=== PATIENT | female | born 1970 | race Caucasian/White ===

== ENCOUNTER 2018-01-11 07:14 | Emergency (ER) | payer MEDICAID ==
[~2018-01-11] VITALS: Ht 154.9 cm; Wt 54.1 kg
[~2018-01-11 07:14] MED LIST: ALBU6.7H INH; DOCU-28 PO
[2018-01-11] MEDS ORDERED: BENZ-16 PO (08:58)
[2018-01-11] MEDS ORDERED: ALBU8HFA PO (08:58)
[2018-01-11] MEDS ORDERED: AZIT-55 PO (09:04)
[2018-01-11] MEDS ORDERED: PRED20TA PO (09:04)
[2018-01-11 09:25] VITALS: BP 156/98
== END 2018-01-11 09:25 | disposition home or self-care (01) ==
LOC: ER 07:14
DX: J40 Bronchitis, not specified as acute or chronic (principal); E78.00 Pure hypercholesterolemia, unspecified; I10 Essential (primary) hypertension; F17.200 Nicotine dependence, unspecified, uncomplicated; Z90.710 Acquired absence of both cervix and uterus; Z85.9 Personal history of malignant neoplasm, unspecified; Z88.5 Allergy status to narcotic agent; Z79.899 Other long term (current) drug therapy
CPT/HCPCS: 71046; 93005; 99284

== ENCOUNTER 2019-11-19 15:24 | Emergency (ER) | payer MEDICAID ==
[~2019-11-19] VITALS: Ht 157.5 cm; Wt 72.7 kg
[~2019-11-19 15:24] MED LIST changes: -ALBU6.7H INH; +ALBU6.7H9 INH
--- NOTE | 2019-11-19 15:54 | NUR ---
Pt transported from ED triage where lab was drawing blood work straight to CT scan via w/c.
[2019-11-19 16:03] LABS: BASOPHILS # (AUTO) 0.1 X10'3 (0-0.2); EOSINOPHILS # (AUTO) 0.1 X10'3 (0-0.9); EOSINOPHILS % (AUTO) 2.4 % (0-6); HEMATOCRIT 42.5 % (35.0-45.0); HEMOGLOBIN 14.7 g/dl (12.0-16.0); LYMPHOCYTES # (AUTO) 1.5 X10'3 (1.1-4.8); LYMPHOCYTES % (AUTO) 25.2 % (21-51); MEAN CORPUSCULAR HEMOGLOBIN 31.1 PG (27.0-31.0); MEAN CORPUSCULAR HGB CONC 34.6 g/dL (33.0-36.5); MEAN CORPUSCULAR VOLUME 89.9 FL (78-98); MEAN PLATELET VOLUME 7.1 FL (7.4-10.4); MONOCYTES # (AUTO) 0.4 X10'3 (0-0.9); MONOCYTES % (AUTO) 7.1 % (2-12); NEUTROPHILS # (AUTO) 3.8 X10'3 (1.8-7.7); NEUTROPHILS % (AUTO) 64.3 % (42-75); PLATELET COUNT 363 X10'3 (140-440); RED BLOOD COUNT 4.73 X10'6 (4.20-5.60); RED CELL DISTRIBUTION WIDTH 13.7 % (11.5-14.5); WHITE BLOOD COUNT 5.9 X10'3 (4.5-11.0)
[2019-11-19 16:15] LABS: PARTIAL THROMBOPLASTIN TIME 26 SECONDS (22-32)
[2019-11-19 16:16] LABS: ALANINE AMINOTRANSFERASE 35 U/L (12-78); ALBUMIN 3.3 G/DL (3.4-5.0); ALBUMIN/GLOBULIN RATIO 0.9 (1.1-1.5); ALKALINE PHOSPHATASE 138 IU/L (46-116); ANION GAP 11 (8-16); ASPARTATE AMINO TRANSFERASE 18 U/L (10-37); BILIRUBIN,TOTAL 0.3 MG/DL (0.1-1.0); BLOOD UREA NITROGEN 13 MG/DL (7-18); BUN/CREATININE RATIO 17.6 (6.6-38.0); CALCIUM 8.7 MG/DL (8.5-10.1); CHLORIDE 107 MMOL/L (99-107); CREATININE 0.74 MG/DL (0.40-0.90); GLUCOSE 125 MG/DL (70-104); POTASSIUM 3.7 MMOL/L (3.5-5.1); SODIUM 143 MMOL/L (135-145); TOTAL CARBON DIOXIDE 25.2 MMOL/L (24-32); TOTAL PROTEIN 6.9 G/DL (6.4-8.2); eGFR 83 ML/MIN
[2019-11-19 16:20] LABS: TROPONIN I < 0.04 NG/ML (0.0-0.05)
[2019-11-19 17:55] LABS: CLARITY,URINE CLEAR (Clear); COLOR,URINE STRAW (Yellow); GLUCOSE, URINE NEGATIVE (Neg); KETONES,URINE NEGATIVE (Neg); LEUKOCYTE ESTERASE ,URINE NEGATIVE (Neg); NITRITES, URINE NEGATIVE (Neg); OCCULT BLOOD,URINE NEGATIVE (Neg); PROTEIN,URINE NEGATIVE (Neg); UROBILINOGEN,URINE 0.2 E.U/dL (0.2-1.0)
[2019-11-19 17:58] LABS: UA COLLECTION TYPE OTHER
[2019-11-19] MEDS ORDERED: LORA-269 PO (18:04)
[2019-11-19 18:10] VITALS: BP 112/62
== END 2019-11-19 18:18 | disposition home or self-care (01) ==
LOC: ER 15:25
DX: F10.129 Alcohol abuse with intoxication, unspecified (principal); F41.0 Panic disorder [episodic paroxysmal anxiety]; R26.2 Difficulty in walking, not elsewhere classified; E78.00 Pure hypercholesterolemia, unspecified; I10 Essential (primary) hypertension; R79.1 Abnormal coagulation profile; Z90.49 Acquired absence of other specified parts of digestive tract; Z90.710 Acquired absence of both cervix and uterus; Z87.891 Personal history of nicotine dependence; Z88.5 Allergy status to narcotic agent; Z79.899 Other long term (current) drug therapy; Y90.0 Blood alcohol level of less than 20 mg/100 ml
CPT/HCPCS: 36415; 70450; 71045; 80053; 80320; 80329; 81003; 82948; 84484; 85025; 85610; 85730; 93005; 99284; 99291

== ENCOUNTER 2021-06-19 11:32 | Inpatient (IN) | payer MEDICAID ==
[~2021-06-19] VITALS: Ht 154.9 cm; Wt 68.2 kg
[~2021-06-19 11:32] MED LIST changes: +LORA-269 PO
[2021-06-19] MEDS ORDERED: iohexol 350MG/ML 100ml bottle IV ONE (12:41)
[2021-06-19 12:59] LABS: BASOPHILS # (AUTO) 0.1 X10'3 (0-0.2); BASOPHILS % (AUTO) 0.8 % (0-1); EOSINOPHILS # (AUTO) 0.2 X10'3 (0-0.9); EOSINOPHILS % (AUTO) 2.2 % (0-6); HEMATOCRIT 43.6 % (35.0-45.0); HEMOGLOBIN 14.7 g/dl (12.0-16.0); LYMPHOCYTES # (AUTO) 1.3 X10'3 (1.1-4.8); LYMPHOCYTES % (AUTO) 16.1 % (21-51); MEAN CORPUSCULAR HEMOGLOBIN 30.9 PG (27.0-31.0); MEAN CORPUSCULAR HGB CONC 33.8 g/dL (33.0-36.5); MEAN CORPUSCULAR VOLUME 91.3 FL (78-98); MEAN PLATELET VOLUME 7.7 FL (7.4-10.4); MONOCYTES # (AUTO) 0.8 X10'3 (0-0.9); MONOCYTES % (AUTO) 9.6 % (2-12); NEUTROPHILS # (AUTO) 5.8 X10'3 (1.8-7.7); NEUTROPHILS % (AUTO) 71.3 % (42-75); PLATELET COUNT 320 X10'3 (140-440); RED BLOOD COUNT 4.78 X10'6 (4.20-5.60); RED CELL DISTRIBUTION WIDTH 13.3 % (11.5-14.5); WHITE BLOOD COUNT 8.1 X10'3 (4.5-11.0)
[2021-06-19 13:12] LABS: ALANINE AMINOTRANSFERASE 24 U/L (12-78); ALBUMIN 3.5 G/DL (3.4-5.0); ALBUMIN/GLOBULIN RATIO 0.9 (1.1-1.5); ALKALINE PHOSPHATASE 141 IU/L (46-116); ANION GAP 11 (8-16); ASPARTATE AMINO TRANSFERASE 17 U/L (10-37); BILIRUBIN,TOTAL 0.4 MG/DL (0.1-1.0); BLOOD UREA NITROGEN 10 MG/DL (7-18); BUN/CREATININE RATIO 11.8 (6.6-38.0); CALCIUM 8.6 MG/DL (8.5-10.1); CHLORIDE 104 MMOL/L (99-107); CREATININE 0.85 MG/DL (0.40-0.90); GLUCOSE 116 MG/DL (70-104); SODIUM 141 MMOL/L (135-145); TOTAL CARBON DIOXIDE 26.2 MMOL/L (24-32); TOTAL PROTEIN 7.2 G/DL (6.4-8.2); eGFR 71 ML/MIN
[2021-06-19] MEDS ORDERED: aspirin 325mg tablet PO ONE (16:10)
[2021-06-19 16:20] LABS: C-REACTIVE PROTEIN 1.05 MG/DL (0.0-0.5); ETHANOL < 0.010 GM/DL (0.0-0.010)
[2021-06-19 16:49] LABS: CLARITY,URINE CLEAR (Clear); COLOR,URINE YELLOW (Yellow); GLUCOSE, URINE NEGATIVE (Neg); KETONES,URINE NEGATIVE (Neg); LEUKOCYTE ESTERASE ,URINE NEGATIVE (Neg); NITRITES, URINE NEGATIVE (Neg); OCCULT BLOOD,URINE NEGATIVE (Neg); PROTEIN,URINE TRACE mg/dl (Neg); UROBILINOGEN,URINE 0.2 E.U/dL (0.2-1.0)
[2021-06-19 16:50] LABS: UA COLLECTION TYPE CLN CATCH MIDSTREAM
[2021-06-19 16:55] LABS: URINE AMPHETAMINE SCREEN POSITIVE (Neg); URINE BARBITUATE SCREEN NEGATIVE (Neg); URINE BENZODIAZEPINES SCREEN NEGATIVE (Neg); URINE CANNABINOID SCREEN NEGATIVE (Neg); URINE COCAINE SCREEN NEGATIVE (Neg); URINE METHADONE SCREEN NEGATIVE (Neg); URINE OPIATE SCREEN NEGATIVE (Neg); URINE PHENCYCLIDINE SCREEN NEGATIVE (Neg)
[2021-06-19 16:56] LABS: SQUAMOUS EPITHELIAL CELL,UR FEW /LPF (FEW)
[2021-06-19 16:57] LABS: BACTERIA,URINE NONE SEEN /HPF (Neg); RBC,URINE 0-2 /HPF (0-2); WBC,URINE 0-4 /HPF (0-4)
[2021-06-19] MEDS ORDERED: NO HOME MEDS (17:07)
[2021-06-19] MEDS ORDERED: tranexamic acid 1gm/0.7% sal. 100 ML IV ONE (17:35)
[2021-06-19] MEDS: metoprolol tartrate 1mg/ml inj IV SCH ×3 (17:50→18:09)
--- NOTE | 2021-06-19 17:54 | NUR ---
ATTEMPT TO CALL REPORT TO [facility], NOTIFIED BY CIRCULAR SAW FILER THAT PT HAS NOT BEEN ACCEPTED EVEN THOUGH WE HAD RECEIVED CONFIRMATION BY TRANSFER CENTER. DR ROBB NOTIFIED AND CALLING [facility]
[2021-06-19 18:17] LABS: D-DIMER < 0.19 MG/L FEU (0-0.50); PARTIAL THROMBOPLASTIN TIME 28 SECONDS (22-32)
--- NOTE | 2021-06-19 18:38 | NUR ---
PT READY FOR TRANSPORT, [facility] ABLE TO TRANSPORT, [facility] PLANT PATHOLOGIST AGREES TO MEET RN AND PT AT ER FOR RETURN TRANSPORT. PT MOVED AND LOADED ON TO [facility], SECURED AND OUT TO [facility]. 1845: ARRIVED AT [facility], PT TAKEN TO MRI. DIFFICULTY GETTING MRI, PT CONTINUALLY SITS UP AND PULLS AT FACE MASK. ATTEMPTS TO VERBALLY CROWN BLOCKER PT AND TALK HER THROUGH EACH SCAN ARE UNSUCCESSFUL. 1921: SPOKE TO CHARGE, ADULT SPECIALIST OFFERS USE OF VERSED FOR SEDATION. SPOKE TO RECEIVED VERBAL ORDERS FOR VERSED. PT PLACED ON MONITOR, MEDICATION ADMINISTERED AND RETURNED TO MRI. 1949: THIS RN STANDS BY FOR MRI, VERBALLY CALMING PT REPEATEDLY THROUGH TESTS. 2039: MRI COMPLETE, PT. RE-LOADED INTO [facility] FOR TRANSPORT BACK TO [facility]. STROKE SYMPTOMS REMAIN NEGATIVE, PT C/O MINOR NUMBNESS TO HER L.ARM ONLY.
--- NOTE | 2021-06-19 20:59 | NUR ---
Patient back in room from [facility] MRI - calling her on the phone, requesting a meal.
[2021-06-19] MEDS ORDERED: temazepam 15mg capsule PO PRN (21:00)
--- NOTE | 2021-06-19 21:45 | NUR ---
VO for Hydralizine 20 mg PO x1 for BP. Okay to give regular diet.
[2021-06-19] MEDS ORDERED: hyDRALAzine 10mg tablet PO STA (21:46)
[2021-06-20] VITALS (7 sets, daily range): BP systolic 150–199; BP diastolic 82–112
[2021-06-20] MEDS ORDERED: ondansetron/PF 4mg/2ml inj IV PRN
[2021-06-20] MEDS ORDERED: magnesium 2GM in 50ml NS 50 ML IV PRN
[2021-06-20] MEDS ORDERED: potassium Cl 20 mEq SR tablet PO PRN ×2
[2021-06-20] MEDS ORDERED: normal saline 1000ml 1,000 ML IV SCH
[2021-06-20] MEDS ORDERED: potassium Cl 40MEQ/1/2NS 520ml 520 ML IV PRN ×2
[2021-06-20] MEDS ORDERED: magnesium Cl slow-release 64mg tablet PO PRN
[2021-06-20] MEDS ORDERED: acetaminophen 325mg tablet PO PRN ×2
[2021-06-20] MEDS ORDERED: magnesium 4gm in 100ml NS 100 ML IV PRN
[2021-06-20 03:23] LABS: BASOPHILS % (AUTO) 0.5 % (0-1); EOSINOPHILS # (AUTO) 0.3 X10'3 (0-0.9); HEMATOCRIT 40.9 % (35.0-45.0); HEMOGLOBIN 13.7 g/dl (12.0-16.0); LYMPHOCYTES # (AUTO) 1.9 X10'3 (1.1-4.8); LYMPHOCYTES % (AUTO) 21.1 % (21-51); MEAN CORPUSCULAR HEMOGLOBIN 30.5 PG (27.0-31.0); MEAN CORPUSCULAR HGB CONC 33.6 g/dL (33.0-36.5); MEAN CORPUSCULAR VOLUME 90.7 FL (78-98); MEAN PLATELET VOLUME 7.4 FL (7.4-10.4); MONOCYTES # (AUTO) 1.1 X10'3 (0-0.9); MONOCYTES % (AUTO) 12.2 % (2-12); NEUTROPHILS # (AUTO) 5.6 X10'3 (1.8-7.7); NEUTROPHILS % (AUTO) 63.2 % (42-75); PLATELET COUNT 290 X10'3 (140-440); RED CELL DISTRIBUTION WIDTH 13.2 % (11.5-14.5); WHITE BLOOD COUNT 8.8 X10'3 (4.5-11.0)
[2021-06-20 03:44] LABS: ALANINE AMINOTRANSFERASE 17 U/L (12-78); ALBUMIN/GLOBULIN RATIO 0.9 (1.1-1.5); ALKALINE PHOSPHATASE 126 IU/L (46-116); ANION GAP 8 (8-16); ASPARTATE AMINO TRANSFERASE 9 U/L (10-37); BILIRUBIN,TOTAL 0.3 MG/DL (0.1-1.0); BLOOD UREA NITROGEN 19 MG/DL (7-18); BUN/CREATININE RATIO 21.3 (6.6-38.0); CALCIUM 8.3 MG/DL (8.5-10.1); CHLORIDE 106 MMOL/L (99-107); CHOL/HDL RATIO 5.6 (0.00-4.99); CHOLESTEROL 263 MG/DL (0-200); CREATININE 0.89 MG/DL (0.40-0.90); GLUCOSE 107 MG/DL (70-104); HDL CHOLESTEROL 47 MG/DL (35-60); LDL CHOLESTEROL 166 MG/DL (50-100); MAGNESIUM 2.1 MG/DL (1.5-2.4); POTASSIUM 3.5 MMOL/L (3.5-5.1); SODIUM 141 MMOL/L (135-145); TOTAL CARBON DIOXIDE 27.2 MMOL/L (24-32); TOTAL PROTEIN 6.3 G/DL (6.4-8.2); TRIGLYCERIDES 235 MG/DL (20-135); eGFR 67 ML/MIN
--- NOTE | 2021-06-20 06:51 | NUR ---
I have received report from RAE BROOKS IN ER and had the opportunity to ask questions. WILL AWAIT PTS ARRIVAL TO THE FLOOR.
[2021-06-20] MEDS: K and/or MAG REPLACEMENT MC SCH ×2 (08:00→20:00)
[2021-06-20] MEDS: aspirin 81mg tablet.DR PO SCH (08:09)
[2021-06-20] MEDS: nicotine 14mg patch - 24hr TD SCH (08:10)
[2021-06-20] MEDS: heparin, porcine 5000 units/ml vial SQ SCH ×2 (08:12→22:04)
[2021-06-20] MEDS: cloNIDine 0.1 mg tablet PO SCH ×3 (09:36→22:04)
[2021-06-20] MEDS: atorvastatin 20mg tablet PO SCH (09:36)
--- NOTE | 2021-06-20 11:23 | NUR ---
Page Sent PAGER ID: [phone] MESSAGE: ROCIO [id number]-RE: SKYLAR VERDIN [id number]...PT HAD MRI AT [facility], DO WE NEED A F/U MRI HERE? Addendum: 06/20/21 at 1202 by Rocio Esteban RN PER , NO F/U MRI NEEDED
--- NOTE | 2021-06-20 12:02 | NUR ---
Page Sent PAGER ID: [phone] MESSAGE: ROCIO [id number]-RE: SKYLAR VERDIN [id number]...BP STILL ELEVATED AFTER CLONIDINE 197/10 HR 63
[2021-06-20] MEDS ORDERED: hydrALAZINE 20mg/ml inj. IV PRN (12:15)
--- NOTE | 2021-06-20 13:30 | NUR ---
Page Sent PAGER ID: [phone] MESSAGE: ROCIO [id number]-RE: SKYLAR VERDIN [id number]...REASSESSMENT OF BP AFTER HYDRALIZINE 178/112 HR 88...PROVIDED 1300 SCHEDULED CLONIDINE, WILL CONTINUE TO MONITOR
--- NOTE | 2021-06-20 14:31 | NUR ---
PAGER ID: [phone] MESSAGE: [id number] Jhony Croft gave clonidine @ 1324 BP @ 1415 161/111 FANY Reed1
[2021-06-20] MEDS ORDERED: cloNIDine 0.1 mg tablet PO STA (14:42)
--- NOTE | 2021-06-20 16:01 | NUR ---
Page Sent PAGER ID: [phone] MESSAGE: ROCIO [id number]-RE: SKYLAR VERDIN [id number]...REASSESS BP 150/82 HR 76...KATHIE ESTEVES STROKE RN KEEP BP 140-165...MRI REPORT IN CHART & IMAGES HAVE BEEN SENT HERE. RAD TO PUSH TO SOC, WILL START TELE-NEURO RE-EVAL NOW
--- NOTE | 2021-06-20 16:11 | NUR ---
SOC TELE-NEURO RE-EVAL REQUESTED
--- NOTE | 2021-06-20 17:07 | NUR ---
JUST COMPLETED TELE-NEURO CONSULT. TELE-NEURO MD WILL REVIEW MRI.
--- NOTE | 2021-06-20 18:19 | NUR ---
Problems reprioritized. Patient report given, questions answered & plan of care reviewed with RAE JONES.
[2021-06-20] MEDS ORDERED: cloNIDine 0.1 mg tablet PO SCH (20:00)
[2021-06-21 00:17] VITALS: BP 153/105
[2021-06-21 01:35] VITALS: BP 164/92
[2021-06-21 05:30] VITALS: BP 164/113
[2021-06-21 05:57] LABS: BASOPHILS # (AUTO) 0.1 X10'3 (0-0.2); BASOPHILS % (AUTO) 0.7 % (0-1); EOSINOPHILS # (AUTO) 0.2 X10'3 (0-0.9); EOSINOPHILS % (AUTO) 3.3 % (0-6); HEMATOCRIT 39.1 % (35.0-45.0); LYMPHOCYTES # (AUTO) 1.9 X10'3 (1.1-4.8); LYMPHOCYTES % (AUTO) 25.5 % (21-51); MEAN CORPUSCULAR HEMOGLOBIN 30.5 PG (27.0-31.0); MEAN CORPUSCULAR HGB CONC 33.3 g/dL (33.0-36.5); MEAN CORPUSCULAR VOLUME 91.6 FL (78-98); MEAN PLATELET VOLUME 7.8 FL (7.4-10.4); MONOCYTES # (AUTO) 0.8 X10'3 (0-0.9); MONOCYTES % (AUTO) 10.5 % (2-12); NEUTROPHILS # (AUTO) 4.5 X10'3 (1.8-7.7); PLATELET COUNT 280 X10'3 (140-440); RED BLOOD COUNT 4.26 X10'6 (4.20-5.60); RED CELL DISTRIBUTION WIDTH 13.3 % (11.5-14.5); WHITE BLOOD COUNT 7.5 X10'3 (4.5-11.0)
[2021-06-21 06:09] LABS: ALANINE AMINOTRANSFERASE 17 U/L (12-78); ALBUMIN 2.8 G/DL (3.4-5.0); ALBUMIN/GLOBULIN RATIO 0.9 (1.1-1.5); ALKALINE PHOSPHATASE 114 IU/L (46-116); ANION GAP 7 (8-16); ASPARTATE AMINO TRANSFERASE 12 U/L (10-37); BILIRUBIN,TOTAL 0.5 MG/DL (0.1-1.0); BLOOD UREA NITROGEN 19 MG/DL (7-18); CALCIUM 8.4 MG/DL (8.5-10.1); CHLORIDE 108 MMOL/L (99-107); CREATININE 0.95 MG/DL (0.40-0.90); GLUCOSE 101 MG/DL (70-104); MAGNESIUM 1.9 MG/DL (1.5-2.4); POTASSIUM 3.9 MMOL/L (3.5-5.1); SODIUM 142 MMOL/L (135-145); TOTAL CARBON DIOXIDE 26.7 MMOL/L (24-32); eGFR 62 ML/MIN
--- NOTE | 2021-06-21 06:55 | NUR ---
Patient in room ORTHO 4023B. I have received report from RAE JONES and had the opportunity to ask questions and assume patient care.
[2021-06-21] MEDS ORDERED: atorvastatin 20mg tablet PO SCH (08:00)
[2021-06-21] MEDS: aspirin 81mg tablet.DR PO SCH (08:00)
[2021-06-21] MEDS: K and/or MAG REPLACEMENT MC SCH (08:00)
[2021-06-21] MEDS ORDERED: lisinopril 10 MG tablet PO SCH (08:00)
[2021-06-21] MEDS: cloNIDine 0.1 mg tablet PO SCH ×2 (08:01)
[2021-06-21] MEDS: atorvastatin 20mg tablet PO SCH (08:01)
[2021-06-21] MEDS: nicotine 14mg patch - 24hr TD SCH (08:02)
[2021-06-21] MEDS: heparin, porcine 5000 units/ml vial SQ SCH (08:02)
[2021-06-21 10:00] VITALS: BP 143/82
[2021-06-21 10:41] VITALS: BP 130/74
[2021-06-21] MEDS ORDERED: ASPI-1071 PO (10:47)
[2021-06-21] MEDS ORDERED: ATOR20TA66 PO (10:47)
[2021-06-21] MEDS ORDERED: LISI10TA27 PO (10:47)
[2021-06-21] MEDS ORDERED: CLON0.1T2 PO (10:47)
--- NOTE | 2021-06-21 13:47 | NUR ---
D/C INSTRUCTIONS GIVEN, QUESTIONS ANSWERED. BELONGINGS GATHERED BY AIDE AND SENT WITH PT. IV D/C'D, CANNULA INTACT, NO COMPLICATIONS. D/C'D PT IN STABLE CONDITION TO HOME IN PRIVATE VEHICLE ACCOMPANIED BY SIGNIFICANT OTHER. PT LEFT FLOOR AT 1340.
== END 2021-06-21 13:40 | disposition home or self-care (01) | DRG 45 ==
LOC: ER 11:33 → ED HOLD 23:57 → UNDOADMIN 23:57 → ED HOLD 06-20 00:02 → ORTHO 4S 06-20 07:55 → ED HOLD 06-20 07:55 → UNDODISIN 06-21 13:40
PROVIDERS: ADMIT Internal Medicine; ATTEND Internal Medicine
PROC: B3251ZZ Computerized Tomography (CT Scan) of Bilateral Common Carotid Arteries using Low Osmolar Contrast (ICD-10-PCS; principal; 2021-06-19)
PROC: B32G1ZZ Computerized Tomography (CT Scan) of Bilateral Vertebral Arteries using Low Osmolar Contrast (ICD-10-PCS; 2021-06-19)
PROC: B32R1ZZ Computerized Tomography (CT Scan) of Intracranial Arteries using Low Osmolar Contrast (ICD-10-PCS; 2021-06-19)
PROC: B3281ZZ Computerized Tomography (CT Scan) of Bilateral Internal Carotid Arteries using Low Osmolar Contrast (ICD-10-PCS; 2021-06-19)
DX: I63.9 Cerebral infarction, unspecified (principal); E78.00 Pure hypercholesterolemia, unspecified; E78.5 Hyperlipidemia, unspecified; F15.10 Other stimulant abuse, uncomplicated; R29.701 NIHSS score 1; F17.200 Nicotine dependence, unspecified, uncomplicated; I10 Essential (primary) hypertension; Z20.822 Contact with and (suspected) exposure to COVID-19; Z79.82 Long term (current) use of aspirin; Z79.899 Other long term (current) drug therapy; Z90.49 Acquired absence of other specified parts of digestive tract; Z90.710 Acquired absence of both cervix and uterus; Z88.5 Allergy status to narcotic agent; Z71.6 Tobacco abuse counseling
CPT/HCPCS: 36415; 70450; 70496; 70498; 70544; 70553; 71045; 80053; 80061; 80305; 80320; 81001; 83735; 84484; 85025; 85379; 85610; 85651; 85730; 86140; 87081; 87635; 93005; 93880; 96374; 97116; 97161; 97530; 99291; 99292; C9803; G0378; J0360; J1644; J3490; J7030; Q9967

== ENCOUNTER 2021-06-23 16:40 | Emergency (ER) | payer MEDICAID ==
[~2021-06-23] VITALS: Ht 154.9 cm; Wt 68.2 kg
[~2021-06-23 16:40] MED LIST changes: -ALBU6.7H9 INH; +ASPI-1071 PO; +ATOR20TA66 PO; +CLON0.1T2 PO; -DOCU-28 PO; +LISI10TA27 PO; -LORA-269 PO
[2021-06-23 16:47] VITALS: BP 207/114
== END 2021-06-23 21:30 | disposition left against medical advice (07) ==
LOC: ER 16:40
DX: R20.0 Anesthesia of skin (principal); Z53.21 Procedure and treatment not carried out due to patient leaving prior to being seen by health care provider

== ENCOUNTER 2021-06-26 17:09 | Emergency (ER) | payer MEDICAID ==
[~2021-06-26] VITALS: Ht 154.9 cm; Wt 68.0 kg
[2021-06-26 18:09] LABS: BASOPHILS # (AUTO) 0.1 X10'3 (0-0.2); BASOPHILS % (AUTO) 0.7 % (0-1); EOSINOPHILS # (AUTO) 0.2 X10'3 (0-0.9); EOSINOPHILS % (AUTO) 2.6 % (0-6); HEMATOCRIT 37.3 % (35.0-45.0); HEMOGLOBIN 12.6 g/dl (12.0-16.0); LYMPHOCYTES # (AUTO) 1.4 X10'3 (1.1-4.8); LYMPHOCYTES % (AUTO) 16.8 % (21-51); MEAN CORPUSCULAR HEMOGLOBIN 30.6 PG (27.0-31.0); MEAN CORPUSCULAR HGB CONC 33.7 g/dL (33.0-36.5); MEAN CORPUSCULAR VOLUME 90.6 FL (78-98); MEAN PLATELET VOLUME 7.6 FL (7.4-10.4); MONOCYTES % (AUTO) 11.7 % (2-12); NEUTROPHILS # (AUTO) 5.8 X10'3 (1.8-7.7); NEUTROPHILS % (AUTO) 68.2 % (42-75); PLATELET COUNT 334 X10'3 (140-440); RED BLOOD COUNT 4.12 X10'6 (4.20-5.60); RED CELL DISTRIBUTION WIDTH 13.3 % (11.5-14.5); WHITE BLOOD COUNT 8.5 X10'3 (4.5-11.0)
[2021-06-26 18:29] LABS: ALANINE AMINOTRANSFERASE 23 U/L (12-78); ALBUMIN 2.9 G/DL (3.4-5.0); ALBUMIN/GLOBULIN RATIO 0.8 (1.1-1.5); ALKALINE PHOSPHATASE 139 IU/L (46-116); ANION GAP 5 (8-16); ASPARTATE AMINO TRANSFERASE 10 U/L (10-37); BILIRUBIN,TOTAL 0.4 MG/DL (0.1-1.0); BLOOD UREA NITROGEN 17 MG/DL (7-18); BUN/CREATININE RATIO 19.1 (6.6-38.0); CALCIUM 8.3 MG/DL (8.5-10.1); CHLORIDE 105 MMOL/L (99-107); CREATININE 0.89 MG/DL (0.40-0.90); GLUCOSE 105 MG/DL (70-104); POTASSIUM 4.4 MMOL/L (3.5-5.1); SODIUM 137 MMOL/L (135-145); TOTAL PROTEIN 6.4 G/DL (6.4-8.2); eGFR 67 ML/MIN
[2021-06-26 19:01] LABS: PARTIAL THROMBOPLASTIN TIME 29 SECONDS (22-32)
[2021-06-26 19:28] VITALS: BP 166/99
== END 2021-06-26 19:30 | disposition home or self-care (01) ==
LOC: ER 17:09
DX: R20.2 Paresthesia of skin (principal); R20.0 Anesthesia of skin; R06.02 Shortness of breath; I10 Essential (primary) hypertension; E78.00 Pure hypercholesterolemia, unspecified; F15.90 Other stimulant use, unspecified, uncomplicated; Z85.9 Personal history of malignant neoplasm, unspecified; Z90.49 Acquired absence of other specified parts of digestive tract; Z90.710 Acquired absence of both cervix and uterus; Z88.8 Allergy status to other drugs, medicaments and biological substances; Z79.82 Long term (current) use of aspirin; Z79.899 Other long term (current) drug therapy
CPT/HCPCS: 36415; 70450; 71045; 80053; 85025; 85610; 85730; 93005; 99285

== ENCOUNTER 2022-07-12 07:43 | Emergency (ER) | payer MEDICAID ==
[~2022-07-12] VITALS: Ht 152.4 cm; Wt 70.5 kg
[2022-07-12 07:59] VITALS: BP 120/82
== END 2022-07-12 08:38 | disposition left against medical advice (07) ==
LOC: ER 07:43
DX: K08.89 Other specified disorders of teeth and supporting structures (principal); Z53.21 Procedure and treatment not carried out due to patient leaving prior to being seen by health care provider

== ENCOUNTER 2025-06-04 06:57 | Emergency (ER) | payer MEDICARE, MEDICAID ==
[~2025-06-04] VITALS: Ht 157.5 cm; Wt 71.1 kg
[2025-06-04 07:12] VITALS: TEMP 97.5
--- NOTE | 2025-06-04 08:04 | Physician Documentation ---
History of Present Illness ~ Chief Complaint: Back Pain Stated Complaint: ABDOMINAL PAIN Time Seen by MD: 07:18 Primary Medical Doctor: [facility] Source: patient Mode of Arrival: POV, Dropped Off Exam Limitations: no limitations HPI Chief Complaint: Right flank pain Caveat: None Independent Historians: None History of Present Illness: Patient is a 55-year-old woman who comes in complaining of right lower back pain and flank pain that began two days ago. Pain has gotten progressively worse and she was unable to sleep through the night. Pain is constant, sharp and waxes and wanes. Pain is 9.5/10 at this time. No nausea or vomiting. Patient denies abdominal pain but states that she feels very bloated. No diarrhea. No fever. Patient denies any alleviating or exacerbating factors. Review of systems: All systems were reviewed and are negative except for what is indicated in the history of present illness. Past Medical History: History of kidney stones Past Surgical History: Appendectomy, hysterectomy Social History: Vapes, former tobacco user, denies alcohol or other drug use Medications: Reviewed as documented Nursing Notes Allergies: Reviewed as documented in Nursing Notes Medication Reconciliation Allergies: Coded Allergies: codeine (Verified Allergy, Unknown, nausea, 06/04/25) Scheduled Aspirin (Ecotrin*), 81 TAB PO DAILY Atorvastatin Calcium (Atorvastatin Calcium), 40 MG PO DAILY Clonidine HCl (Clonidine HCl), 0.2 MG PO Q8H Lisinopril (Lisinopril), 10 MG PO BID Past Medical History Past Medical History: High Cholesterol, Hypertension, Bronchitis, *CANCER* Past Surgical History: appendectomy, hysterectomy Alcohol Use: Rarely Drug Use: none Lives with: Spouse Lives In: Home Occupation: employed Review of Systems All Other Systems at this time: Reviewed and Negative ROS Patient denies any other acute symptoms other than above. All other systems are negative Physical Exam Physical Exam Vital Signs: RN Vital Signs have been reviewed: Yes, Temperature: 97.5, Source: Temporal, Heart Rate: 68, Respiratory Rate: 18, BP: 179/121, Pulse Oximetry: 98, Weight: 71.100 Oxygen Flow Rate: 0 Pulse Oximetry Reflects: adequate oxygenation Physical Exam General Appearance: MILD DISTRESS HEENT: Normal OP, moist oral mucosa, PERRL, EOMI Neck: supple, normal ROM, trachea midline Pulmonary: No respiratory distress, CTA, BS equal Cardiac: RRR, no murmur, rub or gallop, GI: nondistended, soft, nontender, normal bowel sounds, no guarding, no rebound : BILATERAL CVA TENDERNESS, NO INCREASED PAIN WITH MOVEMENT Extremities: normal ROM, no swelling, non-tender Skin: intact, dry, warm, no rashes Neuro: AAOx3, speech is clear, no focal motor weakness Psych: normal affect, good eye contact, no apparent hallucination, normal speech Progress Results/Orders Results/Orders Orders - LANDEN FARFAN MD Morphine 4mg/Ml Inj. (Morphine Inj.) (06/04/25 08:00) Ed Iv Pain Medications (06/04/25 07:58) Ct Abdomen Pelvis (06/04/25 08:40) Monitor (06/04/25 07:58) Saline Lock (06/04/25 07:58) Nothing By Mouth (06/04/25 Dinner) Straight Cath For Urine Sample (06/04/25 07:58) Completed Orders - LANDEN FARFAN MD Cbc/Diff (06/04/25 07:58) Lipase (06/04/25 07:58) Urinalysis, Cult If Indicated (06/04/25 07:58) Hcg, Ur Ql (06/04/25 07:58) Ondansetron Inj. (Zofran 4mg/2ml Vial) (06/04/25 08:00) Normal Saline 1000ml (0.9% Sodium Chlori (06/04/25 08:00) Ct Abdomen Pelvis (06/04/25 08:40) Ketorolac Trometh 15mg/Ml Vial (Toradol (06/04/25 08:00) CMP (06/04/25 07:58) Medications Received in ER Medications (Trade) Dose Ordered Sig/Manuel Route PRN Reason Start Time Stop Time Status Last Admin Dose Admin (Zofran 4mg/2ml vial) 4 mg ONCE ONCE IV 06/04/25 08:00 06/04/25 08:02 DC 06/04/25 08:25 4 MG (morphine inj.) 4 mg Q20M PRN IV moderate to severe pain 4-10 06/04/25 08:00 06/04/25 08:25 4 MG (0.9% sodium chloride (NS) 1000ml IV soln) 1,000 ml ONCE ONCE IVB 06/04/25 08:00 06/04/25 08:02 DC 06/04/25 08:27 1,000 ML (Toradol injection) 15 mg ONCE ONCE IV 06/04/25 08:00 06/04/25 08:06 DC 06/04/25 08:25 15 MG Vital Signs 06/04/25 06/04/25 06/04/25 06/04/25 06:59 07:12 07:12 08:25 Temp 97.5 97.5 Pulse 71 68 Resp 18 18 18 16 B/P (MAP) 188/126 179/121 (140) Pulse Ox 95 98 O2 Flow Rate 0 0 06/04/25 06/04/25 06/04/25 06/04/25 08:25 08:38 09:19 09:20 Pulse 59 62 Resp 16 16 16 16 B/P (MAP) 129/85 (100) 142/86 (104) Pulse Ox 96 97 O2 Flow Rate 0 06/04/25 09:20 Resp 16 Laboratory Tests Test 06/04/25 07:23 06/04/25 08:13 Urine Specimen Description Cln catch midstream Urine Color Straw Urine Clarity Clear Urine pH 6.0 Urine Specific [place] 1.015 Urine Protein Negative Urine Glucose (UA) Negative Urine Ketones Negative Urine Occult Blood Negative Urine Nitrite Negative Urine Bilirubin Negative Urine Urobilinogen 0.2 Urine Leukocyte Esterase Negative Urine Culture Indicated Not ind Volume Urine Centrifuged 10 ml Urine HCG, Qualitative Negative Urine Comment White Blood Count 6.1 Red Blood Count 4.26 Hemoglobin 13.6 Hematocrit 38.8 Mean Corpuscular Volume 91.1 Mean Corpuscular Hemoglobin 32.0 H Mean Corpuscular Hemoglobin Concent 35.1 Red Cell Distribution Width 13.6 Platelet Count 356 Mean Platelet Volume 6.5 L Neutrophils (%) (Auto) 52.0 Lymphocytes (%) (Auto) 32.5 Monocytes (%) (Auto) 11.1 Eosinophils (%) (Auto) 3.5 Basophils (%) (Auto) 0.9 Neutrophils # (Auto) 3.2 Lymphocytes # (Auto) 2.0 Monocytes # (Auto) 0.7 Eosinophils # (Auto) 0.2 Basophils # (Auto) 0.1 CBC Comment Sodium Level 138 Potassium Level 4.0 Chloride Level 105 Carbon Dioxide Level 25.1 Anion Gap 8 Blood Urea Nitrogen 22 H Creatinine 0.86 Estimated GFR/1.73 m2 69 BUN/Creatinine Ratio 25.6 H Glucose Level 107 H Calcium Level 9.1 Total Bilirubin 0.3 Aspartate Amino Transf (AST/SGOT) 21 Alanine Aminotransferase (ALT/SGPT) 46 Alkaline Phosphatase 113 Total Protein 6.8 Albumin 3.2 L Globulin 3.6 Albumin/Globulin Ratio 0.9 L Lipase 42 Chemistry Comments Medical Decision Making Findings Differential diagnosis includes but is not limited to: AAA, Pyelonephritis, ureteral colic, intra-abdominal infection, musculoskeletal pain Abdomen and pelvis CT scan without IV contrast, indication: Right flank pain Impression: No acute intraabdominal abnormality. No kidney stones seen. Laboratory data independent interpretation: CBC: Unremarkable CMP: Unremarkable Urinalysis: Negative, unremarkable Emergency department course/medical decision-making: Patient presents with flank pain. No cause or pathology was identified on the CT scan. No evidence of ureteral stones. No evidence of a urinary tract infection or pyelonephritis. Patient was given Toradol 15 mg IV, morphine 4 mg IV, Zofran 4 mg IV for her pain and potential nausea. Test results and treatment plan reviewed with the patient. No medical or surgical emergency has been identified. Patient is stable for discharge. The cause for her pain is unknown. Pain did not seem musculoskeletal as she is able to move without any difficulties. Departure Time of Disposition: 09:37 Disposition: 01 HOME / SELF CARE / HOMELESS Impression: Primary Impression: Acute right flank pain Condition: Stable Discharge Instructions: Flank Pain, Adult, [id number] Additional Instructions: THE CAUSE FOR YOUR PAIN IS UNKNOWN. CAUSE HAS NOT BEEN IDENTIFIED. YOUR LAB WORK AND CT SCAN WERE NORMAL OR UNREMARKABLE. FOLLOW UP WITH YOUR PRIMARY CARE DOCTOR. RETURN TO THE ER IF YOUR SYMPTOMS WORSEN. Education Educated: Patient Educated regarding: diagnosis, treatment, need for follow up Signature Scribe Signature: No scribe Attestation: No scribe LANDEN FARFAN MD Jun 04, 2025 08:04
[2025-06-04] MEDS: ketorolac trometh 15mg/ml vial 15 MG/ML ML IV ONE (08:25)
[2025-06-04] MEDS: morphine 4 MG/ML inj SYRINge IV PRN (08:25)
[2025-06-04] MEDS: ondansetron/PF 4mg/2ml inj IV ONE (08:25)
[2025-06-04] MEDS: normal saline 1000ML IV soln IVB ONE (08:27)
[2025-06-04 08:28] LABS: MEAN PLATELET VOLUME 6.5 FL (7.4-10.4); RED CELL DISTRIBUTION WIDTH 13.6 % (11.5-14.5)
[2025-06-04 08:46] LABS: URINE HCG NEGATIVE (NEG)
[2025-06-04 08:50] LABS: LEUKOCYTE ESTERASE ,URINE NEGATIVE (Neg); NITRITES, URINE NEGATIVE (Neg); OCCULT BLOOD,URINE NEGATIVE (Neg)
[2025-06-04 08:51] LABS: CREATININE 0.86 MG/DL (0.40-0.90); TOTAL CARBON DIOXIDE 25.1 MMOL/L (24-32); eCRCL 58 ML/MIN; eGFR 69 ML/MIN
[2025-06-04 08:54] LABS: UA COLLECTION TYPE CLN CATCH MIDSTREAM
--- NOTE | 2025-06-04 09:06 | RADIOLOGY REPORT ---
CT CT ABDOMEN PELVIS INDICATION: right flank pain EXAM DATE: 06/04/2025 08:33 AM COMPARISON: None RADIATION DOSE: CTDIvol: 19 mGy, DLP: 851 mGy*cm PROCEDURE: Helical CT images were obtained of the abdomen and pelvis without IV contrast Sagittal and coronal reconstructions are provided. ORAL CONTRAST: None. ADDITIONAL IMAGES / REFORMATS: None All C T scans at this medical facility are performed using dose modulation techniques as appropriate to a p erformed exam including the following: Automated exposure control was utilized; adjustment of the MA and/or KV according to patient size; and use of iterative reconstruction technique. FINDINGS: LUNG BASE: Normal. LIVER: Normal. GALLBLADDER AND BILIARY TREE: No calcified gallstones. Normal caliber wall. No intra- or extrahepatic biliary ductal dilation. PANCREAS: Normal. SPLEEN: Normal. BOWEL: Mild colonic diverticulosis. Appendix not seen. ADRENALS: Normal. KIDNEYS AND URETER: Normal. BLADDER: Normal. REPRODUCTIVE ORGANS: Absent uterus. LYMPH NODES:No lymphadenopathy. PERITONEUM: No ascites or free air. No other fluid collection. VESSELS: Scattered atherosclerotic calcifications are noted. RETROPERITONEUM: Normal. ABDOMINAL WALL: Normal. BONES: Scattered osseous degenerative changes are noted. IMPRESSION: No acute intraabdominal abnormality. No kidney stones seen.
[2025-06-04 09:57] VITALS: BP 142/86; PULSE 57; RESP 14; O2SAT 96
== END 2025-06-04 10:01 | disposition home or self-care (01) ==
LOC: ER 06:58
DX: R10.84 Generalized abdominal pain (principal); M54.50 Low back pain, unspecified; F17.290 Nicotine dependence, other tobacco product, uncomplicated; E78.00 Pure hypercholesterolemia, unspecified; I10 Essential (primary) hypertension; Z87.442 Personal history of urinary calculi; Z90.710 Acquired absence of both cervix and uterus; Z90.49 Acquired absence of other specified parts of digestive tract; Z88.5 Allergy status to narcotic agent; Z79.82 Long term (current) use of aspirin; Z79.899 Other long term (current) drug therapy
CPT/HCPCS: 36415; 74176; 80053; 81003; 81025; 83690; 85025; 96361; 96374; 96375; 99285; J1885; J2270; J2405; J7030